=== PATIENT | male | born 1955 | race Caucasian/White ===

== ENCOUNTER 2022-06-20 19:58 | Emergency (ER) | payer MEDICARE, BC, SELFPAY ==
--- NOTE | 2022-06-20 20:13 | CRLHL7_ITS ---
For Patients: As a result of the Century Cures Act, medical imaging exams and procedure reports are released immediately into your electronic medical record. You may view this report before your referring provider. If you have questions, please contact your health care provider. Indication: Elbow pain, no history of trauma Technique: Four views right elbow Comparison: None Findings: Bones: Alignment is normal. No fractures or bone lesions. No bony erosions. Joint spaces: Unremarkable. Soft tissues: Small elbow effusion. Impression: Small elbow effusion. No acute bony abnormality. Dictated by Jessica Olmedo MD @ 06/20/2022 9:39:25 PM (Electronically Signed)
--- NOTE | 2022-06-20 20:16 | ED.GENADULT ---
HPI - General Adult General Date Seen: 06/20/22 Chief complaint: Extremity Pain/Injury, Upper Stated complaint: Right elbow and wrist pain Time Seen by Provider: 06/20/22 20:13 Source: patient History of Present Illness HPI narrative: 67-year-old male presents with 1 day history of right elbow pain. He denies any injury or trauma to his elbow. He has been working in the garden doing a lot of shoveling in [place]. He is right-handed and is using his right arm a lot. Today is been quite painful and has had difficulty using his right arm. He has not had a fever. No previous history of arthritis or other elbow injury. He has had some previous shoulder problems on that side but they are not bothering him today. He has taken Tylenol for pain without much relief. Related Data Home Medications Medication Instructions Recorded Confirmed No Known Home Medications 06/20/22 06/20/22 Allergies Allergy/AdvReac Type Severity Reaction Status Date / Time No Known Drug Allergies Allergy Verified 06/20/22 21:07 Review of Systems Narrative: He has not recently been ill. No fever. No shoulder or neck pain. [facility] Medical History (Updated 06/21/22 @ 00:23 by Hugo Varela MD) No significant past medical history Surgical History (Updated 06/20/22 @ 23:47 by Rome Can RN) No significant past surgical history Social History Smoking Status: Never smoker Do you use any of these nicotine containing products: None How often do you have a drink containing alcohol: never How often do you have six or more drinks on one occasion: Never AUDIT-C Alcohol total score: 0 Non-prescribed substance use: denies use Exam Narrative: Exam Narrative: He is alert and appears in no distress until he attempts to move his right arm. Palpation shows tenderness over the posterior medial elbow in the area of the cubital tunnel. he has some swelling. No warmth or redness. No break in the skin. Passive and active Range of motion is from about 105? to 135? limited by pain. he has minimal supination and pronation also due to pain. Palpation over the forearm without significant tenderness palpation over the antecubital fossa and lateral elbow is without tenderness. Palpation over the right shoulder and upper arm is without tenderness. Palpation over the wrist and hand on the right hand is normal. He has intact sensation though he describes some subjective paresthesias. Intact pulses distally as well. Motor function in the hand is normal. Const: Vital Signs, click to edit/add: Vital Signs - 24 hr 06/20/22 20:58 06/20/22 21:15 06/20/22 22:59 Temperature 98.4 F 98.4 F 98.4 F Pulse Rate [Left P ulse Oximeter] 83 Respiratory Rate 16 Blood Pressure [Ri ght Upper Arm] 144/87 H Pulse Oximetry 96 O2 sat is 98%, blood pressure 132/74 in the left arm, pulse 87. Course Vital Signs Vital signs: Initial Vital Signs Temperature 98.4 F 06/20/22 20:58 Temperature Source Temporal Artery Scan 06/20/22 20:58 Pulse Rate 83 06/20/22 20:58 Pulse Rhythm 06/20/22 20:58 Respiratory Rate 16 06/20/22 20:58 Blood Pressure 144/87 H 06/20/22 20:58 Blood Pressure Mean 106 06/20/22 20:58 Blood Pressure Position Sitting 06/20/22 20:58 Pulse Oximetry 96 06/20/22 20:58 Oxygen Delivery Method 06/20/22 20:58 Vital Signs Temperature 98.4 F 06/20/22 20:58 Pulse Rate 83 06/20/22 20:58 Respiratory Rate 16 06/20/22 20:58 Blood Pressure 144/87 H 06/20/22 20:58 Pulse Oximetry 96 06/20/22 20:58 Temperature 98.4 F 06/20/22 22:59 Pulse Rate 83 06/20/22 20:58 Respiratory Rate 16 06/20/22 20:58 Blood Pressure 144/87 H 06/20/22 20:58 Pulse Oximetry 96 06/20/22 20:58 Medical Decision Making Lab Data Labs: Lab Results 06/20/22 06/20/22 Range/Units 21:48 21:48 WBC 11.24 H (4.50-11.00) K/uL RBC 4.71 (4.30-5.90) m/uL Hgb 14.8 (13.5-17.5) gm/dL Hct 43.7 (37.0-53.0) % MCV 93 (80-100) fL MCH 31 (26-34) pg MCHC 34 (32-36) gm/dL RDW Coeff of Martín 12.0 (11.5-15.5) % Plt Count 231 (140-440) K/uL Neut % (Auto) 79.2 H (42.0-72.0) % Lymph % (Auto) 12.2 L (20-44) % Mason % (Auto) 7.6 (0.0-11.0) % Eos % (Auto) 0.4 (0.0-7.0) % Baso % (Auto) 0.4 (0.0-3.0) % Neut # (Auto) 8.90 H (1.7-7.0) K/uL Lymph # (Auto) 1.40 (0.90-2.90) K/uL Mason # (Auto) 0.90 (0.00-0.90) K/UL Eos # (Auto) 0.00 (0.00-0.50) K/uL Baso # (Auto) 0.00 (0.00-0.30) K/uL Abs Immat Gran (auto) 0.02 (0.00-0.30) K/uL Sodium 137 (135-149) mmol/L Potassium 3.9 (3.6-5.1) mmol/L Chloride 103 (96-114) mmol/L Carbon Dioxide 28 (20-32) mmol/L BUN 19 (7-30) mg/dL Creatinine 0.9 (0.5-1.5) mg/dL Estimated Creat Clear 62.91 Estimated GFR 92 ml/min Glucose 112 (60-115) mg/dL Calcium 8.9 (8.4-10.6) mg/dL C-Reactive Protein 2.9 H (0.5-1.0) mg/dL Discharge Plan Discharge Clinical Impression: Arthralgia of right wrist, Arthritis of right elbow Patient Disposition: Home, Self-Care Condition: Improved Additional Instructions: For the next few days keep your right arm in a sling except for hygiene and occasional stretching of your arm. Use ibuprofen 400 mg every 6 hours or oxycodone 5 mg every 6 hours as needed for pain. Apply ice as needed for pain as well. If you develop a fever or if pain swelling and redness in your all below are increasing return to the emergency department. Prescriptions: No Action No Known Home Medications 0RF Follow Up/Referrals: Luis Carlos Mcqueen MD [Primary Care Provider] - Magno Henderson MD [Staff Physician] - (Go to the orthopedic clinic in the next week for recheck of your elbow) Stand Alone Forms: [employer] Info Instructions
[2022-06-20 20:58] VITALS: BP 144/87; PULSE 83; RESP 16; TEMP 36.9; O2SAT 96; BMI 30.7
[2022-06-20 21:15] VITALS: TEMP 36.9
[2022-06-20] MEDS: IBUPROFEN 600 MG TABLET PO (21:15)
[2022-06-20 21:57] LABS: Basophils Percent Auto 0.4 % (0.0-3.0); Eosinophils Percent Auto 0.4 % (0.0-7.0); Hematocrit 43.7 % (37.0-53.0); Hemoglobin* 14.8 gm/dL (13.5-17.5); Immature Granulocytes Abs Auto 0.02 K/uL (0.00-0.30); Lymphocytes Percent Auto 12.2 % (20-44); Mean Corpuscular HGB Conc 34 gm/dL (32-36); Mean Corpuscular Hemoglobin 31 pg (26-34); Mean Corpuscular Volume 93 fL (80-100); Monocytes Percent Auto 7.6 % (0.0-11.0); Neutrophils Percent Auto 79.2 % (42.0-72.0); Platelet Count* 231 K/uL (140-440); Red Blood Count 4.71 m/uL (4.30-5.90); White Blood Count* 11.24 K/uL (4.50-11.00)
[2022-06-20 22:07] LABS: Slide Review Reflex No
[2022-06-20 22:09] LABS: Chloride* 103 mmol/L (96-114); Potassium* 3.9 mmol/L (3.6-5.1); Sodium* 137 mmol/L (135-149)
[2022-06-20 22:12] LABS: Creatinine* 0.9 mg/dL (0.5-1.5); Est. Creatinine Clearance* 62.91; Estimated Glomerular Filt Rate 92 ml/min
[2022-06-20 22:13] LABS: Blood Urea Nitrogen* 19 mg/dL (7-30); Calcium* 8.9 mg/dL (8.4-10.6); Carbon Dioxide* 28 mmol/L (20-32); Glucose* 112 mg/dL (60-115)
[2022-06-20 22:16] LABS: C Reactive Protein* 2.9 mg/dL (0.5-1.0)
--- NOTE | 2022-06-20 22:44 | CRLHL7_ITS ---
For Patients: As a result of the Cures Act, medical imaging exams and procedure reports are released immediately into your electronic medical record. You may view this report before your referring provider. If you have questions, please contact your health care provider. INDICATION: Wrist injury, Pain TECHNIQUE: Wrist radiograph 3 views right COMPARISON: None FINDINGS: Bone: No acute fractures or aggressive bone lesions are identified. 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 Mild chondrocalcinosis of the TFCC is seen. Soft tissue: Unremarkable. No radiopaque foreign bodies are seen. IMPRESSION: 1. No acute osseous injuries or abnormalities are noted. Dictated by Sherman Mckenzie MD @ 06/20/2022 11:28:13 PM Dictated by: Sherman Mckenzie MD @ 06/20/2022 23:28:15 (Electronically Signed)
[2022-06-20] MEDS: OXYCODONE 5 MG TABLET PO (22:57)
[2022-06-20 22:59] VITALS: TEMP 36.9
--- NOTE | 2022-06-20 23:02 | PC.NURSE ---
pt was moved to room 3 for continuity of care, pt and daughter upset about the wait and feel they were not well informed about tests and why they were being done, pt reassured that we were communicating with the physician and that imaging will be in for another image of wrist, pt given oxycodone as he wanted something additional to ibuprofen
[2022-06-21 00:20] VITALS: BP 135/78; PULSE 83; RESP 16; TEMP 36.9; O2SAT 96
[2022-06-21 00:24] VITALS: BP 135/78; PULSE 78; RESP 16; TEMP 36.9
== END 2022-06-21 00:32 | disposition home or self-care (01) ==
PROVIDERS: Emergency Provider Family Medicine; PCP Family Medicine
DX: M25.531 Pain in right wrist (principal); M25.521 Pain in right elbow
CPT/HCPCS: 36415; 73080; 73110; 80048; 84484; 85025; 85379; 86140; 87040; 87635; 99283; 99284; A9270

== ENCOUNTER 2023-07-28 14:52 | Outpatient (CLI) | payer MEDICARE, BC, SELFPAY | END 2023-07-28 14:53 | disposition home or self-care (01) | LOC: LONREF 14:53 | PROVIDERS: PCP Family Medicine; Visit Provider Family Medicine | DX: R51.9 Headache, unspecified (principal); R11.0 Nausea | CPT/HCPCS: 80053 ==

== ENCOUNTER 2024-05-15 11:52 | Outpatient (CLI) | payer MEDICARE, BC, SELFPAY ==
--- OUTSIDE RECORDS SUMMARY | 2024-05-15 12:00 | XMS_ITS | Clinical Summary ---
Author Organization [facility] Address [place], [place] [address] Care Team Providers Care Sole Splitter Name Role Phone Luis Carlos Mcqueen MD Primary Care Provider [phone] Allergies No known active allergies Medications Medication Sig Dispensed Refills Start Date End Date Status celecoxib (CELEBREX) 200 mg capsuleIndications:P rimary osteoarthritis of left knee,Primary osteoarthritis of right knee Take 1 Capsule (200 mg) by mouth two times daily with meals. 60 Capsule 2 05/08/2024 Active celecoxib (CELEBREX) 200 mg capsuleIndications:P rimary osteoarthritis of both knees Take 1 Capsule (200 mg) by mouth two times daily with meals. 60 Capsule 2 01/11/2023 Discontinue d(Reorder (E-cancel not sent)) Hospital, Clinic, or Other Facility Administered Medication Ordered Dose Route Frequency Start Date End Date Status hylan G-F 20 48 mg injection (SYNVISC ONE)Indications:Primary osteoarthritis of left knee,Primary osteoarthritis of right knee 48 mg IArtic ONE TIME 05/08/2024 05/08/2024 Ended hylan G-F 20 48 mg injection (SYNVISC ONE)Indications:Primary osteoarthritis of left knee,Primary osteoarthritis of right knee 48 mg IArtic ONE TIME 05/08/2024 05/08/2024 Ended Active Problems No known active problems Encounters Date Type Department Care Team Description 05/13/2024 Telephone [facility] [address] [place] [address] Juice Boston MD Referral 05/08/2024 3:00 PM CDT Office Visit [facility] [address] [place] [address] Juice Boston MD Musculoskeletal Problem (Follow up Bilateral knee pain) 05/08/2024 Travel 04/24/2024 1:45 PM CDT Office Visit [facility] [address] [place] [address] Nelson Mullen DPM Follow Up (Bilateral great toenails-PNA check) 04/24/2024 Travel 04/23/2024 Telephone [facility] [address] [place] [address] Nelson Mullen DPM Questions (ingrown toenail procedure location) 04/23/2024 Telephone [facility] [address] [place] [address] Juice Boston MD Questions (REQUESTING A CALL BACK// BEFORE TOMORROW 04/23/24 ) 03/18/2024 9:20 AM CDT Office Visit [facility] [address] [place] [address] Juice Boston MD Musculoskeletal Problem (f/u bilateral knee pain- injections last visit) 03/18/2024 Travel from Last 3 Months Social History Tobacco Use Types Packs/Day Years Used Date Smoking Tobacco: Former Cigarettes Smokeless Tobacco: Never Tobacco Cessation:Counseling Given: No Alcohol Use Standard Drinks/Week Comments Not Currently 0 (1 standard drink = 0.6 oz pur e alcohol) Social Connections Answer Date Recorded Frequency of Communication with Friends and Fami ly Not on file 11/27/2021 Financial Resource Strain Answer Date R ecorded Difficulty of Paying Living Expenses Not on file 11/27/2021 Difficulty of Paying Living Expenses Not on file 11/27/2021 Sex and Gender Information Value Date Recorded Sex Assigned at Not on file Gender Identity Not on file Sexual Orientation Not on file Obstetrics History Last Filed Vital Signs Vital Sign Reading Time Taken Comments Blood Pressure 116/73 05/08/2024 3:03 PM CDT Pulse 72 05/08/2024 3:03 PM CDT Temperature 36.9 ??C (98.4 ??F) 05/08/2024 3:03 PM CD T Respiratory Rate - - Oxygen Saturation 97% 05/08/2024 3:03 PM CDT Inhaled Oxygen Concentration - - Weight 90.1 kg (198 lb 9.6 oz) 05/08/2024 3:03 P M CDT Height 166 cm (5' 5.35) 05/31/2021 1:41 PM CDT Body Mass Index 32.69 05/31/2021 1:41 PM CDT Plan of Treatment Health Maintenance Due Date Last Done Comments Tdap 01/29/1964 Depression screening for age 12+ 1965 Hepatitis C screening for ag e 18-79 1971 Tetanus booster 1973 Colonoscopy through age 75 1998 Lipids for age 45-75 1998 Zoster (shingles) series for age 50+ (1 of 2) 2003 AAA screening age 65-74 2018 Medicare Wellness for age 65+ 2018 Pneumococcal series for age 65+ (1 of 1 - PCV) 2018 BMI (ht and wt on same day) for age 18+ 05/31/2022 05/31/2021 COVID-19 vaccine series (2022- season) 2023 04/07/2022, 11/22/2021, 03/04/2021, Additional history exists Influenza for age 65+ 07/28/2024 Care Teams Sole Splitter Relationship Specialty Start Date End Date Luis Carlos Mcqueen MD [address] [place] [address] PCP - General Family Practice 03/18/24
== END 2024-05-15 11:53 | disposition home or self-care (01) ==
PROVIDERS: PCP Family Medicine; Visit Provider Family Medicine
DX: Z12.5 Encounter for screening for malignant neoplasm of prostate (principal); E78.2 Mixed hyperlipidemia; Z13.1 Encounter for screening for diabetes mellitus
CPT/HCPCS: 80048; 80061; G0103

== ENCOUNTER 2024-05-28 10:33 | Outpatient (CLI) | payer MEDICARE, BC, SELFPAY ==
--- OUTSIDE RECORDS SUMMARY | 2024-05-28 10:37 | XMS_ITS | Clinical Summary ---
Author Organization [facility] Address [place], [place] [address] Care Team Providers Care Editor Magazine Name Role Phone Luis Carlos Mcqueen MD Primary Care Provider [phone] Allergies No known active allergies Medications Medication [...] Type Department Care Team Description 05/13/2024 Telephone [facility] [address] [place] [address] Juice Boston MD Referral 05/08/2024 3:00 PM CDT Office Visit [facility] [address] [place] [address] Juice Boston MD Musculoskeletal Problem (Follow up Bilateral knee pain) 05/08/2024 Travel 04/24/2024 1:45 PM CDT Office Visit [facility] [address] [place] [address] Nelson Mullen DPM Follow Up (Bilateral great toenails-PNA check) 04/24/2024 Travel 04/23/2024 Telephone [facility] [address] [place] [address] Nelson Mullen DPM Questions (ingrown toenail procedure location) 04/23/2024 Telephone [facility] [address] [place] [address] Juice Boston MD Questions (REQUESTING A CALL BACK// BEFORE TOMORROW 04/23/24 ) 03/18/2024 9:20 AM CDT Office Visit [facility] [address] [place] [address] Juice Boston MD Musculoskeletal Problem (f/u bilateral [...] Influenza for age 65+ 07/28/2024 Care Teams Editor Magazine Relationship Specialty Start Date End Date Luis Carlos Mcqueen MD [address] [place] [address] PCP - General Family Practice 03/18/24
[2024-05-28 11:40] VITALS: BP 122/78; PULSE 86; RESP 16
--- NOTE | 2024-05-28 12:02 | W.PM.STED ---
Stress Test Note Date Date of test: 05/28/24 Providers Primary care provider: Luis Carlos Mcqueen Stress test physician: Wesley Castellanos Stress Test Note Stress test ordered: Exercise Stress Test Indication for test: Chest pain Results discussion: Patient is a very nice 69-year-old gentleman who presents for the above test after discussion the risks benefits side effects and limitations of the test he would like to proceed. Indication for the test is chest pain, his cardiac stress test medical history form is reviewed. Pretest EKG shows normal sinus rhythm with a ventricular rate of 66. Blood pressure is 117/72. No acute ST wave changes are noted. Standard Drake protocol is used for a duration of 9 minutes 2nd, he achieved a metabolic equivalent of 10.5 Mets, with a maximum heart rate of 140. This is 110% of the predicted max. Test is terminated because of fulfillment of protocol, during this test there is no subjective symptoms suggestive of ischemia such as chest pain shortness of breath or any other anginal equivalent. Very mild changes are noted on the EKG, there is slight depression noted inferiorly. Of 1 mm no reciprocal changes are noted Impression: This is a negative exercise stress test, with no subjective or objective evidence of ischemia. Patient exercised to a very high rate, with no complaints. Chief clinical suspicion is high I would suggest a stress echo, Follow up suggested: Follow-up with primary care physician of ongoing concerns. Report will be sent to primary care physician, ongoing concerns stress echo suggested
== END 2024-05-28 10:34 | disposition home or self-care (01) ==
LOC: STRESS 10:34
PROVIDERS: PCP Family Medicine; Visit Provider Family Medicine
DX: R07.9 Chest pain, unspecified (principal)
CPT/HCPCS: 93016; 93017

== ENCOUNTER 2024-06-13 14:36 | Outpatient (CLI) | payer MEDICARE, BC, SELFPAY ==
--- OUTSIDE RECORDS SUMMARY | 2024-06-13 14:40 | XMS_ITS | Clinical Summary ---
Author Organization [facility] Address [place], [place] [address] Care Team Providers Care Sewing Machines Salesperson Name Role Phone Luis Carlos Mcqueen MD Primary Care Provider [phone] Allergies No known active allergies Medications Medication Sig Dispensed Refills Start Date End Date Status celecoxib (CELEBREX) 200 mg capsuleIndications:Lucia gavin osteoarthritis of left knee,Primary osteoarthritis of right knee Take 1 Capsule (200 mg) by mouth two times daily with meals. 60 Capsule 2 05/08/2024 Active Active Problems No known active problems Encounters Date Type Department Care Team Description 05/13/2024 Telephone [facility] [address] [place] [address] Juice Boston MD Referral 05/08/2024 3:00 PM CDT Office Visit [facility] [address] [place] [address] Juice Boston MD Musculoskeletal Problem (Follow up Bilateral knee pain) 05/08/2024 Travel 04/24/2024 1:45 PM CDT Office Visit [facility] [address] [place] [address] Nelson Mullen DPM Follow Up (Bilateral great toenails-PNA check) 04/24/2024 Travel 04/23/2024 Telephone [facility] [address] [place] [address] Nelson Mullen DPM Questions (ingrown toenail procedure location) 04/23/2024 Telephone [facility] [address] [place] [address] Juice Boston MD Questions (REQUESTING A CALL BACK// BEFORE TOMORROW 04/23/24 ) 03/18/2024 9:20 AM CDT Office Visit [facility] [address] [place] [address] Juice Boston MD Musculoskeletal Problem (f/u bilateral [...] 05/31/2021 1:41 PM CDT Plan of Treatment Upcoming Encounters Date Type Department Care Team (Late st Contact Info) Description 06/13/2024 3:00 PM CDT Ancillary Procedure [facility] [address] [place] [address] Health Maintenance Due Date Last Done Comments [...] Influenza for age 65+ 07/28/2024 Care Teams Sewing Machines Salesperson Relationship Specialty Start Date End Date Luis Carlos Mcqueen MD [address] [place] [address] PCP - General Family Practice 03/18/24
[2024-06-13 15:27] VITALS: BP 148/90
[2024-06-13] MEDS: PERFLUTREN LIPID MICROSPHERES 2 ML VIAL IV (15:35)
--- NOTE | 2024-06-13 15:46 | P.STN_ITS ---
Stress Test Note Date Date Seen: 06/13/24 Date of test: 06/13/24 Providers Primary care provider: Luis Carlos Mcqueen Stress test physician: Irene Vincent Stress Test Note Stress test ordered: Stress Echo Indication for test: Chest pain, EKG with mild changes on treadmill stress test Stress test medicine: Definity Results discussion: Resting EKG: Sinus rhythm, 71 beats per minute. Flipped T-wave in V1 without any ST segment change. Resting blood pressure: 138/76 Stress test: Patient consent was obtained for stress test ordered. Patient exercised on the treadmill following standard Drake protocol, completed 9 minutes 2nd. Definity was used. He exercised to an equivalent of 10.5 Mets. He had a maximum heart rate of 134 beats per minute which was 105% of a calculated target of 127. He had a rate pressure product of 22,078. He had no symptoms, no arrhythmia. There were no definitive EKG changes diagnostic of ischemia but do note computer generated data show about [address] depression in inferior leads. He did have occasional premature atrial contraction in recovery . Exercise was stopped as patient reached heart rate, required definity. Preliminary echo report is negative for ischemia. Impression: Subjectively negative, objectively nondiagnostic changes inferiorly on EKG. Follow up suggested: Patient will await the echo report to couple this for a full formal diagnostic. The inferior EKG changes are certainly not meeting diagnostic criteria for ischemia and patient had no symptoms. He is leaving the stress test in stable condition.
== END 2024-06-13 14:37 | disposition home or self-care (01) ==
LOC: STRESS 14:37
PROVIDERS: PCP Family Medicine; Visit Provider Family Medicine
DX: R07.9 Chest pain, unspecified (principal)
CPT/HCPCS: 93016; 93325; 93351; Q9957

== ENCOUNTER 2024-12-23 09:04 | Outpatient (CLI) | payer MEDICARE, BC, SELFPAY | END 2024-12-23 09:05 | disposition home or self-care (01) | PROVIDERS: PCP Family Medicine; Visit Provider Family Medicine | DX: R10.9 Unspecified abdominal pain (principal); E78.5 Hyperlipidemia, unspecified; R53.83 Other fatigue | CPT/HCPCS: 80061; 80076; 83690; 84443 ==

== ENCOUNTER 2024-12-24 06:59 | Outpatient (CLI) | payer MEDICARE, BC, SELFPAY ==
--- NOTE | 2024-12-24 08:05 | W.ANESCHARGE ---
Anesthesia Charges Start Date/Time Anesthesia Start Date: 12/24/24 Anesthesia Start Time: 07:43 Stop Date/Time Anesthesia Stop Date: 12/24/24 Anesthesia Stop Time: 08:05 Coding CPT Codes CPT Codes: DAVID LWR INTST NDSC NOS - 79308 ([id number]) P2 - PATIENT W/MILD SYST DISEASE, QK - SECOND VP HR ASSESSMENT 2-4 CNCRNT ANES PROC, QX - KIESELGUHR REGENERATOR OPERATOR SVC W/ MD MED DIRECTION
--- NOTE | 2024-12-24 09:44 | W.ANESCHARGE ---
Anesthesia Charges Start Date/Time Anesthesia Start Date: 12/24/24 Anesthesia Start Time: 07:43 Stop Date/Time Anesthesia Stop Date: 12/24/24 Anesthesia Stop Time: 08:05 Summary Extremes of Age - Over 70 or under 1: MDA Coding CPT Codes CPT Codes: ANES LWR INTST NDSC NOS - 61692 ([id number]) P2 - PATIENT W/MILD SYST DISEASE, QK - RAIL CAR WELDER 2-4 CNCRNT ANES PROC, QX - FRENCH FOLDING MACHINE OPERATOR SVC W/ MD MED DIRECTION Additional Codes: Summary - Extremes of Age - Over 70 or under 1: MDA ([id number])
== END 2024-12-24 07:00 | disposition home or self-care (01) ==
LOC: OP CLINIC 07:01
PROVIDERS: PCP Family Medicine; Visit Provider Internal Medicine
DX: Z12.11 Encounter for screening for malignant neoplasm of colon (principal); D12.4 Benign neoplasm of descending colon
CPT/HCPCS: 00811; 45380; 88305; 99100; J2704

== ENCOUNTER 2025-03-03 07:27 | Day surgery (SDC) | payer MEDICARE, BC, SELFPAY ==
[2025-03-03] VITALS (23 sets, daily range): BP systolic 92–148; BP diastolic 50–77; PULSE 57–73; RESP 12–18; TEMP 35.6–36.9; O2SAT 90–99; BMI 31.6
--- NOTE | 2025-03-03 08:15 | W.PM.H&PU ---
History & Physical Update History & Physical Update H&P Reviewed and patient assessed: No changes noted
[2025-03-03] MEDS: ACETAMINOPHEN 500 MG TABLET 1000 MG PO ×3 (08:22→20:33)
[2025-03-03] MEDS: OXYCODONE (CR) 10 MG TAB.ER.12H PO (08:22)
[2025-03-03] MEDS: SODIUM CHLORIDE 0.9 % (FLUSH) 10 ML SYRINGE IVF (08:25)
[2025-03-03] MEDS: LACTATED RINGERS 1000 ML 1,000 ML 100 ML IV ×2 (08:25→11:11)
[2025-03-03] MEDS: MIDAZOLAM HCL 1 MG/ML inj IVP (09:15)
[2025-03-03] MEDS: fentaNYL 100 MCG/2 ML inj IVP (09:15)
--- NOTE | 2025-03-03 09:21 | SUR.PREOP ---
TIME?OUT:?912 PT/RN/MDA?VERIFICATION?OF?SURGICAL?SITE,?PROCEDURE,?AND?CONSENT OBTAINED?PRIOR?TO?INVASIVE?PROCEDURE.
[2025-03-03] MEDS: CEFAZOLIN 2 GM in 0.9 % SODIUM CHLORIDE Mini-bag 100 ML IVPB ×3 (09:40→23:15)
--- NOTE | 2025-03-03 09:44 | CRLHL7_ITS ---
For Patients: As a result of the Cures Act, medical imaging exams and procedure reports are released immediately into your electronic medical record. You may view this report before your referring provider. If you have questions, please contact your health care provider. Indication: post op Technique: Two views right knee Findings/Impression: Hardware from a right total knee arthroplasty is in satisfactory position. Bone alignment is normal. No sign of acute fracture. Postop changes are within normal limits. Dictated by Solomon Nova MD @ 03/03/2025 11:44:48 AM (Electronically Signed)
[2025-03-03] MEDS: TRANEXAMIC ACID 100 MG/ML INJ 1000 MG IV (09:45)
--- NOTE | 2025-03-03 11:05 | PM.ORPRC ---
Procedure Note Date of procedure: 03/03/25 Procedure: PREOPERATIVE DIAGNOSIS: 1. Right knee osteoarthritis, primary, severe POSTOPERATIVE DIAGNOSIS: 1. Right knee osteoarthritis, primary, severe PROCEDURE: 1. Right total knee arthroplasty - subvastus SURGEON: Magno Henderson MD. CUPOLA MELTER HELPER: MAGALY Walter - Of note, a skilled floor covering printer assistant was critical for this case to aid in patient positioning, tissue retraction, limb manipulation/positioning, and closure. ANESTHESIA: Spinal anesthetic IMPLANTS: DePuy J&J all cemented TKA - Attune PS femur size 7 Size 6 tibia 5 poly spacer 38 mm patella TOURNIQUET: 90 min at 300 torr EBL: 50 ml COMPLICATIONS: None evident INDICATIONS: The patient is a pleasant 70-year-old male who has experienced severe right knee pain and difficulty bearing weight. Workup included x-rays which revealed severe osteoarthrosis in the knee. Given the deformity, the dysfunction, and the pain, as well as the failure of nonoperative management, recommendation was made for surgery. FINDINGS: Full-thickness chondral loss lateral compartment. To lesser degree patellofemoral and medial compartment. Degenerative meniscus pathology lateral greater than medial. Large effusion upon entering the joint. DESCRIPTION OF PROCEDURE: Following a thorough discussion of risks, benefits, and alternatives consent was obtained and the right knee was marked. The patient was brought to the operating room and placed supine on the operating table. Induction of anesthesia was undertaken. 2 g IV Ancef and 1 g tranexamic acid was administered within 1 hr of incision preoperatively. Proper time-out was performed identifying proper patient, site, procedure. The operative extremity was prepped and draped in the appropriate sterile fashion using ChloraPrep after the patient was positioned supine with all bony prominences well padded. A longitudinal, anterior, midline skin incision was made starting approximately 3cm proximal to the superior pole of the patella and advanced distal to the tibial tubercle. A subvastus approach was utilized. A medial subperiosteal sleeve was created with knife, farley elevator and curved osteotome. The retropatellar fatpad was resected and the synovium in the suprapatellar pouch excised to visualize the anterior femoral cortex. Femoral preparation was performed via an intramedullary guide. Step drill allowed access into the femoral canal. The distal cutting guide was placed with 5? of valgus and 12 mm cut on the distal femur due to a 10?+ flexion contracture. Femur was sized using a posterior referencing guide in 3? of external rotation. This found have a best fit with the sizing noted above. The 4 in 1 cutting block was then placed, and the distal femur shaped accordingly. The box cut was then created and the trial implant inserted to confirm appropriate fit. We turned our attention to the proximal tibia. Extramedullary guide was utilized for cutting with the goal of being 90 degree cut from the mechanical axis of the tibia in the varus/valgus plane utilizing tibial crest as the primary alignment. Initially a 2 mm resection was performed from the medial tibial plateau. An additional 2mm did require resection to achieve appropriate balance. Ultimately, balancing was achieved in both flexion and extension in both varus and valgus. The knee was able to achieve full extension as well comfortably. The patella was initially measured and found have a thickness of 22 mm. It was resected back to approximately 14 mm. It was sized to be a best fit with as noted above. This was drilled, trial placed. All trials were placed and found to have an excellent stability and balance. At this stage, trial implants were removed, the knee was thoroughly irrigated with normal saline, and the cement was mixed. After irrigation, the knee was thoroughly dried, and cement placed, with the real tibial and femoral implants placed along with the patella. Trial poly spacer was placed and confirmed to have excellent range of motion and full extension, and the real poly spacer opened and inserted. All extra cement was removed, and a 3 min Betadine soak performed. Finally, a final irrigation round with normal saline was performed. Closure performed with 0 Vicryl and #0 Stratafix for the quad tendon/retinaculum. 2-0 Vicryl for the subcutaneous and 4-0 Stratafix for subcuticular closure. Dressings were applied and the patient was awoken from anesthesia after the tourniquet deflated and transferred the PACU in stable condition. A skilled floor covering printer assistant was critical for this case to aid in patient positioning, tissue retraction, bone exposure, limb manipulation/positioning, patient safety, and closure. PLAN: 1. Weight bear as tolerated operative extremity. 2. 23 hr perioperative antibiotics. 3. Ice. 4. PT/OT consults for ambulation assistance/mobility education. 5. Social work consult for discharge planning. 6. DVT prophylaxis with at SCDs and aspirin twice daily.
--- NOTE | 2025-03-03 11:12 | P.ANES_ITS ---
Anesthesia Charges Start Date/Time Anesthesia Start Date: 03/03/25 Anesthesia Start Time: 09:27 Stop Date/Time Anesthesia Stop Date: 03/03/25 Anesthesia Stop Time: 11:25 Summary Extremes of Age - Over 70 or under 1: BOILER BLOWER Coding CPT Codes CPT Codes: ANESTH KNEE ARTHROPLASTY - 50478 ([id number]) P2 - PATIENT W/MILD SYST DISEASE, QK - EMPLOYMENT LAW SPECIALIST 2-4 CNCRNT ANES PROC, QX - BOILER BLOWER SVC W/ MD MED DIRECTION Additional Codes: Summary - Extremes of Age - Over 70 or under 1: BOILER BLOWER ([id number])
--- NOTE | 2025-03-03 11:12 | W.ANESCHARGE ---
Anesthesia Charges Start Date/Time Anesthesia Start Date: 03/03/25 Anesthesia Start Time: 09:27 Stop Date/Time Anesthesia Stop Date: 03/03/25 Anesthesia Stop Time: 11:25 Summary Extremes of Age - Over 70 or under 1: MACHINING SUPERVISOR Coding CPT Codes CPT Codes: ANESTH KNEE ARTHROPLASTY - 15680 ([id number]) P2 - PATIENT W/MILD SYST DISEASE, QK - COOK SPECIALTY 2-4 CNCRNT ANES PROC, QX - MACHINING SUPERVISOR SVC W/ MD MED DIRECTION Additional Codes: Summary - Extremes of Age - Over 70 or under 1: MACHINING SUPERVISOR ([id number])
--- NOTE | 2025-03-03 11:34 | P.ANES_ITS ---
Anesthesia Charges Start Date/Time Anesthesia Start Date: 03/03/25 Anesthesia Start Time: 09:27 Stop Date/Time Anesthesia Stop Date: 03/03/25 Anesthesia Stop Time: 11:25 Summary Extremes of Age - Over 70 or under 1: MDA Coding CPT Codes CPT Codes: ANESTH KNEE ARTHROPLASTY - 32877 ([id number]) QK - GENERAL ROAD SUPERVISOR 2-4 CNCRNT ANES PROC, QX - SERVICING MANAGER SVC W/ MD MED DIRECTION, P2 - PATIENT W/MILD SYST DISEASE Additional Codes: Summary - Extremes of Age - Over 70 or under 1: MDA ([id number])
--- NOTE | 2025-03-03 11:34 | W.ANESCHARGE ---
Anesthesia Charges Start Date/Time Anesthesia Start Date: 03/03/25 Anesthesia Start Time: 09:27 Stop Date/Time Anesthesia Stop Date: 03/03/25 Anesthesia Stop Time: 11:25 Summary Extremes of Age - Over 70 or under 1: MDA Coding CPT Codes CPT Codes: ANESTH KNEE ARTHROPLASTY - 55743 ([id number]) QK - REFLECTOR DRILLER AND DEBURRER 2-4 CNCRNT ANES PROC, QX - DIRECTOR OF ENVIRONMENTAL SERVICES SVC W/ MD MED DIRECTION, P2 - PATIENT W/MILD SYST DISEASE Additional Codes: Summary - Extremes of Age - Over 70 or under 1: MDA ([id number])
--- NOTE | 2025-03-03 11:34 | W.PM.NB ---
Nerve Block Nerve Block Time Seen by Provider: 09:15 Date Seen: 03/03/25 Type of block requested by surgeon for post-operative analgesia: adductor canal Side: right Time out performed: Yes Verification of patient name: Yes Verification of date of : Yes Site marking: site marked Name of person performing procedure: Ildefonso Continuous monitoring Was continuous monitoring of O2 sat, B/P, hall monitor, recorded every 15 minutes?: Yes Procedure Checklist: sterile prep, needles and gloves Ultrasound guided. Images saved: Yes Medications given in 5ml increments after negative aspiration: Marcaine %: 0.25 mL: 15 Needle gauge: 20 Precedex (mcg): 25 Patient tolerated procedure well: Yes Block Charges Block Charge (with Pro Fee): Femoral Nerve Use of Ultrasound Machine for Block: Yes- US Guidance/pain block
--- NOTE | 2025-03-03 11:35 | W.PM.NB ---
Nerve Block Nerve Block Time Seen by Provider: 09:15 Date Seen: 03/03/25 Type of block requested by surgeon for post-operative analgesia: geniculars Side: right Time out performed: Yes Verification of patient name: Yes Verification of date of : Yes Site marking: site marked Name of person performing procedure: Ildefonso Continuous monitoring Was continuous monitoring of O2 sat, B/P, cosmetic counselor, recorded every 15 minutes?: Yes Procedure Checklist: sterile prep, needles and gloves Ultrasound guided. Images saved: Yes Medications given in 5ml increments after negative aspiration: Marcaine %: 0.25 mL: 9 Needle gauge: 25 Patient tolerated procedure well: Yes Block Charges Block Charge (with Pro Fee): Genicular Nerve Block
[2025-03-03] MEDS: lidocaine HCL 2 % JELLY (TOP) STERILE 6 ML UR (14:39)
[2025-03-03] MEDS: HYDROmorphone 0.5 mg/0.5 ml inj IVP (15:34)
--- NOTE | 2025-03-03 16:05 | P.IMCN_ITS ---
Date of Consult Consult date: 03/03/25 Primary Care Provider: Luis Carlos Mcqueen MD Consult Narrative Narrative: Yvan Blood is a 70 year old male with hyperlipidemia, osteoarthritis of the knees, SINAN admitted to the hospital for right total knee arthroplasty. Procedures performed by Dr. Henderson today. No operative complications. He is requesting consult for medical management perioperatively. Patient reported having significant low abdominal pain after coming out of anesthesia to the [facility] floor. He was unable to void. Bladder scan showed a large amount of retained urine. Straight cath was performed for about a 1000 mL of urine. This relieved his low abdominal pain. Patient is does not have a history of urinary retention, bladder problems, prostate problems, bowel problems. He reports he does void every 2-3 hours at night. Otherwise denies any other urinary symptoms. He reports no other concerns. Knee pain is adequately controlled. He is not having any nausea. Preop evaluation did not identify any significant concerns for the perioperative. He does have sleep apnea but chose not to bring his CPAP to the hospital. [facility] Medical History (Updated 03/03/25 @ 16:39 by Hugo Varela MD) Urinary retention ?R33.9 - Retention of urine, unspecified (ICD-10) Family history of ASCVD ?Z82.49 - Family history of ischemic heart disease and other diseases of the circulatory system (ICD-10) Adenomatous colon polyp ?D12.6 - Benign neoplasm of colon, unspecified (ICD-10) Hyperlipidemia ?E78.5 - Hyperlipidemia, unspecified (ICD-10) Osteoarthritis of left knee ?M17.12 - Unilateral primary osteoarthritis, left knee (ICD-10) Osteoarthritis of right knee ?M17.11 - Unilateral primary osteoarthritis, right knee (ICD-10) Knee injury ?S89.90XA - Unspecified injury of unspecified lower leg, initial encounter (ICD-10) Observed sleep apnea ?G47.30 - Sleep apnea, unspecified (ICD-10) Chest pain ?R07.9 - Chest pain, unspecified (ICD-10) Low back pain (09/14/10) ?M54.50 - Low back pain, unspecified (ICD-10) History of rheumatic fever ?Z86.79 - Personal history of other diseases of the circulatory system (ICD- 10) Surgical History (Updated 03/03/25 @ 16:38 by Hugo Varela MD) History of total right knee replacement (03/03/25) ?Z96.651 - Presence of right artificial knee joint (ICD-10) History of open reduction and internal fixation (ORIF) procedure ?Z98.890 - Other specified postprocedural states (ICD-10) Status post nasal septoplasty (09/14/10) ?Z98.890 - Other specified postprocedural states (ICD-10) Status post carpal tunnel release of both wrists (09/14/10) ?Z98.890 - Other specified postprocedural states (ICD-10) Social History (Updated 03/03/25 @ 16:35 by Hugo Varela MD) Narrative: He lives with his in [place]. Their house has ramps and only 1 step that is about 5-1/2 inches. He has 2 daughters that live nearby and in [place]. He does it dates his 2 daughters is healthcare power of admitted attorneys. Code status is full. He does not smoke. He occasionally drinks alcohol, about once a week. What is your current living situation?: I presently have a place to live Problems where you live: no known problems In the past 12 months, utilities in danger of being shut off: no In past 12 months, lack of transportation kept you from medical appts, meetings, work, or getting things needed for daily living: no In the past 12 mos, have been you worried that your food would run out before you had money to buy more?: never true In the past 12 mos, the food you bought just didn't last and you didn't have money to buy more?: never true Highest level of school completed/degree received: Associate degree: occupational, technical, vocational program Smoking Status: Former smoker Do you use any of these nicotine containing products: None How often do you have a drink containing alcohol: monthly or less How many standard drinks containing alcohol do you have on a typical day: 1 or 2 How often do you have six or more drinks on one occasion: Never AUDIT-C Alcohol total score: 1 Non-prescribed substance use: denies use Caffeine: Yes How often does anyone, including family, friends and others, physically hurt you : never How often does anyone, including family, friends and others, insult or talk down to you: never How often does anyone, including family, friends and others, threaten you with harm: never How often does anyone, including family, friends and others, scream or curse at you: never service: No Meds Home Medications and Allergies Home Medications ?Medication ?Instructions ?Recorded ?Confirmed ?Type rosuvastatin 10 mg tablet 10 mg PO DAILY 03/03/25 03/03/25 History Home Medication Comments: Takes 2 pills daily, atorvastatin 20 mg daily Allergies Allergy/AdvReac Type Severity Reaction Status Date / Time No Known Drug Allergies Allergy Verified 03/03/25 07:36 Exam Narrative: Exam Narrative: Initially seen when he is alert and appears in mild discomfort at that time is abdomen is soft but he has fullness and tenderness in his lower abdomen. Repeat examination after straight cath as follows: He is alert in no distress. Oropharynx is normal except small airway neck is supple without mass or adenopathy. Respirations are clear to auscultation. Cardiovascular: S1, S2, regular rate and rhythm. No murmur gallop or rub. Abdomen: Bowel sounds are active. Abdomen is soft without any tenderness. He moves all 4 extremities well. Right knee is bandaged but otherwise normal in appearance without obvious swelling bruising or redness. Intact pulses and sensation in his feet. No significant edema. Const: Vital Signs, click to edit/add: Vital Signs - 24 hr 03/03/25 07:35 03/03/25 09:15 03/03/25 11:20 Temperature 97.8 F Pulse Rate 73 60 64 Respiratory Rate 18 14 14 Blood Pressure 139/72 122/64 92/50 L Pulse Oximetry 97 99 90 Oxygen Delivery Me thod Room Air Nasal Cannula OxyMask Oxygen Flow Rate 2 6 03/03/25 11:25 03/03/25 11:30 03/03/25 11:35 Temperature 97.8 F Pulse Rate 64 62 60 Respiratory Rate 14 12 12 Blood Pressure 94/57 L 102/63 111/64 Pulse Oximetry 98 98 95 Oxygen Delivery Me thod OxyMask OxyMask Room Air Oxygen Flow Rate 6 4 03/03/25 11:40 03/03/25 11:45 03/03/25 11:47 Temperature 97.0 F L Pulse Rate 62 59 L 64 Respiratory Rate 14 16 14 Blood Pressure 106/59 L 116/69 101/62 Pulse Oximetry 94 95 95 Oxygen Delivery Me thod Room Air Room Air Room Air Oxygen Flow Rate 03/03/25 12:00 03/03/25 12:15 03/03/25 12:30 Temperature 96.0 F L 96.0 F L Pulse Rate 57 L 62 61 Respiratory Rate 14 14 14 Blood Pressure 120/68 118/74 113/67 Pulse Oximetry 95 95 95 Oxygen Delivery Me thod Room Air Room Air Oxygen Flow Rate 03/03/25 12:45 03/03/25 12:45 03/03/25 13:15 Temperature 96.6 F L Pulse Rate 59 L 64 64 Respiratory Rate 16 16 16 Blood Pressure 107/67 107/62 113/69 Pulse Oximetry 96 96 96 Oxygen Delivery Me thod Room Air Room Air Room Air Oxygen Flow Rate Documenting provider has reviewed patient's vital signs: yes Assessment and Plan Assessment and plan (1) Osteoarthritis of right knee: Problem comment: Severe Status: Acute (2) History of total right knee replacement: Problem comment: Right total knee arthroplasty - subvastus. Dr. Henderson, 03/03/25. Anticipate routine postoperative pain management and therapy and discharge to home tomorrow. Status: Acute (3) Urinary retention: Problem comment: Postop right knee arthroplasty on 03/03/2025 he had low abdominal pain with 1000 mL of retained urine. Will straight cath 1 more time if needed after that place [place] if still unable to void. Initiate tamsulosin therapy. Discussed with patient ongoing evaluation management of this problem including possible explanations/diagnosis and potential treatments. Status: Acute (4) Observed sleep apnea: Problem comment: Monitor tonight since patient is here off CPAP Status: Acute Plan Patient is admitted the hospital for management of postoperative care, pain, bowel and bladder function, therapy. Total Time Spent Total Time Spent: Total time spent today is 55 minutes in reviewing outside records, coordination of care, evaluating and re-evaluating urinary retention and discussing with patient and his family postoperative management of the knee arthroplasty as well as urinary retention and catheter care.
--- NOTE | 2025-03-03 16:17 | PC.SOCIAL ---
Discharge planning: bridge ironworker helper attempted to meet with pt today x3 this afternoon. The first time the pt was with PT and the second time the pt was with the doctor and the third time the pt was sleeping. bridge ironworker helper will plan to meet with the pt in the morning. Social work to follow-up as needed.
--- NOTE | 2025-03-03 19:35 | PC.NURSE ---
The patient is recovering well on the M/S unit. Weak movement in RLE, pedal pulse intact and CMS present. Mild pain noted by the patient. Ice pack to R knee, LR@ 75. Tolerating a regular diet with no issues, poor PO fluid intake. The patient had severe bladder distention and Bladder scan was preformed by ANGELINE, Straight cath was inserted per order and 1000cc was emptied, to monitor for reoccurrence. Call light within reach and the family is at the bedside. Sofya CHURCH BSN
[2025-03-03] MEDS: TAMSULOSIN HCL 0.4 MG CAPSULE PO (19:49)
[2025-03-03] MEDS: OXYCODONE 5 MG TABLET PO ×2 (19:51→23:17)
[2025-03-03] MEDS: ASPIRIN 81 MG TABLET EC PO (20:33)
[2025-03-03] MEDS: SENNOSIDES 1 TAB TABLET 2 TAB PO (20:34)
[2025-03-03] MEDS: ROSUVASTATIN CALCIUM 10 MG TABLET 20 MG PO (23:54)
[2025-03-04] MEDS: ACETAMINOPHEN 500 MG TABLET 1000 MG PO ×2 (02:19→09:04)
[2025-03-04] MEDS: OXYCODONE 5 MG TABLET PO ×3 (02:21→09:04)
[2025-03-04 02:55] VITALS: BP 120/62; PULSE 69; RESP 16; TEMP 36.8; O2SAT 95
--- NOTE | 2025-03-04 06:09 | PC.NURSE ---
End of shift note [id number]: Pt A&Ox4 and able to make needs known. He is transferring/ambulating with SBA using FWW and GB. VSS- pt has been afebrile and on RA throughout the shift with O2 sats maintained over 90% throughout the shift, even when sleeping (pt has hx of SINAN though did not bring home CPAP). Dressing to anterior R knee C/D/I and CMS to RLE intact. Pt tolerating regular diet with no N/V. Pain to R knee controlled with rest, ice, repositioning and PRN and scheduled pain medications. Bilateral plexi pulses worn. Pt slept well in between cares. He has been voiding in bathroom with PVRs of 244 mL and 15 mL this shift. Pt's daughter Aicha called at 2245 last evening requesting update whether pt had voided at HS. She was updated that pt had voided and was bladder scanned with PVR of 244 mL at HS. Bed alarm on and call light within reach. ?
[2025-03-04 06:38] LABS: Basophils Percent Auto 0.1 % (0.0-3.0); Eosinophils Percent Auto 0.1 % (0.0-7.0); Hematocrit 36.4 % (37.0-53.0); Hemoglobin* 12.3 gm/dL (13.5-17.5); Immature Granulocytes Pct Auto 0.1 %; Lymphocytes Percent Auto 11.7 % (20-44); Mean Corpuscular HGB Conc 34 gm/dL (32-36); Mean Corpuscular Hemoglobin 31 pg (26-34); Mean Corpuscular Volume 93 fL (80-100); Monocytes Percent Auto 8.9 % (0.0-11.0); Neutrophils Percent Auto 79.1 % (42.0-72.0); Platelet Count* 200 K/uL (140-440); RDW Coefficient of Variation % 12.6 % (11.5-15.5); Red Blood Count 3.92 m/uL (4.30-5.90); White Blood Count* 13.89 K/uL (4.50-11.00)
[2025-03-04 06:45] LABS: Slide Review Reflex No
[2025-03-04 06:52] LABS: Sodium* 134 mmol/L (135-149)
[2025-03-04 06:55] LABS: Blood Urea Nitrogen* 14 mg/dL (7-30); Creatinine* 0.6 mg/dL (0.5-1.5); Est. Creatinine Clearance* 55.91; Estimated Glomerular Filt Rate 103 ml/min
[2025-03-04] MEDS: CEFAZOLIN 2 GM in 0.9 % SODIUM CHLORIDE Mini-bag 100 ML IVPB (07:00)
[2025-03-04 07:33] VITALS: BP 106/61; PULSE 58; RESP 16; TEMP 37.2; O2SAT 93
[2025-03-04] MEDS: TAMSULOSIN HCL 0.4 MG CAPSULE PO (09:04)
[2025-03-04] MEDS: SENNOSIDES 1 TAB TABLET 2 TAB PO (09:04)
[2025-03-04] MEDS: ASPIRIN 81 MG TABLET EC PO (09:04)
--- NOTE | 2025-03-04 09:51 | PM.ORPN ---
Subjective Subjective Date Seen: 03/04/25 Principal diagnosis: Status postop day 1 right total knee arthroplasty Interval history: Patient reports doing okay. Acute events overnight included urinary retention; this was relieved with straight catheterization. Since, he is able to void urine on his own volition without any abdominal discomfort, or distention. Pain managed with scheduled and PRN medications, ice. DVT prophylaxis: 81 mg aspirin by mouth twice daily, SCDs, walking. Denies fevers, chills, aches, N/V, CP, SOB/WALKER, or lightheadedness. Ortho Exam Narrative Exam Narrative: -Patient appears comfortable; no apparent acute distress -Alert and oriented times 3 -Operative knee moderately swollen; soft tissues supple; no ecchymosis; no erythematous streaking Warmth appropriate -Surgical dressing clean, dry, intact; no drainage -Bilateral calfs soft; no significant swelling, edema, tenderness, erythema, discoloration, warmth, or palpable cords -2+ DP/PT pulses, intact dermatomes and myotomes distally (5/5 strength) Const Vital Signs, click to edit/add: Vital Signs - 24 hr 03/03/25 11:20 03/03/25 11:25 03/03/25 11:30 Temperature 97.8 F 97.8 F Pulse Rate 64 64 62 Pulse Rate [Left Pulse Oximeter] Respiratory Rate 14 14 12 Blood Pressure 92/50 L 94/57 L 102/63 Blood Pressure [Right Arm] Pulse Oximetry 90 98 98 Oxygen Delivery Method OxyMask OxyMask OxyMask Oxygen Flow Rate 6 6 4 03/03/25 11:35 03/03/25 11:40 03/03/25 11:45 Temperature 97.0 F L Pulse Rate 60 62 59 L Pulse Rate [Left Pulse Oximeter] Respiratory Rate 12 14 16 Blood Pressure 111/64 106/59 L 116/69 Blood Pressure [Right Arm] Pulse Oximetry 95 94 95 Oxygen Delivery Method Room Air Room Air Room Air Oxygen Flow Rate 03/03/25 11:47 03/03/25 12:00 03/03/25 12:15 Temperature 96.0 F L 96.0 F L Pulse Rate 64 57 L 62 Pulse Rate [Left Pulse Oximeter] Respiratory Rate 14 14 14 Blood Pressure 101/62 120/68 118/74 Blood Pressure [Right Arm] Pulse Oximetry 95 95 95 Oxygen Delivery Method Room Air Room Air Oxygen Flow Rate 04/07/25 12:30 03/03/25 12:45 03/03/25 12:45 Temperature Pulse Rate 61 59 L 64 Pulse Rate [Left Pulse Oximeter] Respiratory Rate 14 16 16 Blood Pressure 113/67 107/67 107/62 Blood Pressure [Right Arm] Pulse Oximetry 95 96 96 Oxygen Delivery Method Room Air Room Air Room Air Oxygen Flow Rate 03/03/25 13:15 03/03/25 13:45 03/03/25 14:45 Temperature 96.6 F L 97.0 F L 97.2 F L Pulse Rate 64 59 L 62 Pulse Rate [Left Pulse Oximeter] Respiratory Rate 16 14 16 Blood Pressure 113/69 148/77 H 131/72 Blood Pressure [Right Arm] Pulse Oximetry 96 96 97 Oxygen Delivery Method Room Air Room Air Oxygen Flow Rate 03/03/25 15:00 03/03/25 15:45 03/03/25 16:45 Temperature 97.5 F L 97.9 F Pulse Rate 69 69 Pulse Rate [Left Pulse Oximeter] Respiratory Rate 16 14 16 Blood Pressure 123/74 104/64 Blood Pressure [Right Arm] Pulse Oximetry 95 96 96 Oxygen Delivery Method Room Air Room Air Room Air Oxygen Flow Rate 03/03/25 18:32 03/03/25 19:45 03/03/25 19:45 Temperature 97.8 F 98.1 F 98.1 F Pulse Rate 60 70 Pulse Rate [Left Pulse Oximeter] 70 Respiratory Rate 16 16 16 Blood Pressure 106/68 112/64 Blood Pressure [Right Arm] 112/64 Pulse Oximetry 95 97 97 Oxygen Delivery Method Room Air Room Air Oxygen Flow Rate 03/03/25 23:00 03/03/25 23:00 03/03/25 23:15 Temperature 98.5 F Pulse Rate Pulse Rate [Left Pulse Oximeter] 62 62 Respiratory Rate 18 18 18 Blood Pressure Blood Pressure [Right Arm] 113/62 Pulse Oximetry 95 95 Oxygen Delivery Method Room Air Room Air Oxygen Flow Rate 03/04/25 02:55 03/04/25 07:33 Temperature 98.3 F 98.9 F Pulse Rate Pulse Rate [Left Pulse Oximeter] 69 58 L Respiratory Rate 16 16 Blood Pressure Blood Pressure [Right Arm] 120/62 106/61 Pulse Oximetry 95 93 Oxygen Delivery Method Room Air Room Air Oxygen Flow Rate Assessment and Plan Assessment and plan (1) Osteoarthritis of right knee: Problem details: Severe Status: Acute (2) History of total right knee replacement: Problem details: Right total knee arthroplasty - subvastus. Dr. Henderson, 03/03/25. Anticipate routine postoperative pain management and therapy and discharge to home tomorrow. Status: Acute (3) Urinary retention: Problem details: Postop right knee arthroplasty on 03/03/2025 he had low abdominal pain with 1000 mL of retained urine. Will straight cath 1 more time if needed after that place [place] if still unable to void. Initiate tamsulosin therapy. Discussed with patient ongoing evaluation management of this problem including possible explanations/diagnosis and potential treatments. Status: Acute (4) Observed sleep apnea: Problem details: Monitor tonight since patient is here off CPAP Status: Acute Plan - Complete 23 hour perioperative antibiotics. - PT/OT consult for education and assistance. - Social work consult for discharge planning - Prescribed analgesics as needed - DVT prophylaxis: 81 mg aspirin by mouth twice daily, walking, and SCDs - Anticipation is for discharge to home with family today 03/04/2025 if the patient remains medically stable, pain is controlled, and they are safe with mobilization.
[2025-03-04] MEDS: ONDANSETRON ODT 4 MG TAB PO (11:19)
--- NOTE | 2025-03-04 11:40 | PC.SOCIAL ---
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 Social work can try to follow-up with pt via phone on .
--- NOTE | 2025-03-04 13:22 | PC.NURSE ---
Discharge: Patient pleasant and cooperative. Patient vitally stable, lungs clear, BS WNL, IV removed, catheter intact. Patient rates right knee pain 8/10, 10 mg of oxy given twice. Patient reported zophran after discharge information was reviewed. Charge nurse administered zophran. Patient signed belongings sheet and discharge form, patient and family's questions answered. Patient left the floor to home by wheelchair with family [phone].
--- NOTE | 2025-03-04 13:45 | P.DS_ITS ---
DS: Providers Provider Date Seen: 03/04/25 Primary care physician: Luis Carlos Mcqueen MD Attending Physician on discharge: Magno Henderson MD Date of Discharge: 03/04/25 DS: Diagnosis Discharge Diagnosis (1) History of total right knee replacement: Status: Acute Problem details: Right total knee arthroplasty - subvastus. Dr. Henderson, 03/03/25. Anticipate routine postoperative pain management and therapy and discharge to home tomorrow. (2) Urinary retention: Status: Acute Problem details: Postop right knee arthroplasty on 03/03/2025 he had low abdominal pain with 1000 mL of retained urine. After initial straight cath did not need any further intervention for urinary retention. Bladder scan up to 247 mL on 1 occasion. No urinary symptoms. DS: Summary Hospital Course Hospital Course: Yvan Blood is a 70 year old male with hyperlipidemia, osteoarthritis of the knees, SINAN admitted to the hospital for right total knee arthroplasty. Procedures performed by Dr. Henderson today. No operative complications. He is requesting consult for medical management perioperatively. Patient reported having significant low abdominal pain after coming out of anesthesia to the [facility] floor. He was unable to void. Bladder scan showed a large amount of retained urine. Straight cath was performed for about a 1000 mL of urine. This relieved his low abdominal pain. Patient is does not have a history of urinary retention, bladder problems, prostate problems, bowel problems. He reports he does void every 2-3 hours at night. Otherwise denies any other urinary symptoms. He reports no other concerns. Knee pain is adequately controlled. He is not having any nausea. Preop evaluation did not identify any significant concerns for the perioperative. He does have sleep apnea but chose not to bring his CPAP to the hospital. Overnight he did fairly well. He did well with therapy. Pain is adequately controlled. He is able to void without difficulty. No urinary symptoms. After initial straight cath he had no further significant urinary retention. He had 1 bladder scan up to 247 mL. Be discharged with the addition of tamsulosin and follow-up outpatient for further evaluation of urinary retention. Status at Discharge Functional status at discharge: uses cane/walker Overall status at discharge: patient is progressing back to baseline Time Spent with Patient Time attestation: Total time spent providing and/or coordinating discharge services: Exam Narrative: Exam Narrative: He is alert and appears in no distress. Breathing is normal. Right lower extremity with mild postoperative swelling. No distal edema a a good pulses and sensation. Const: Vital Signs, click to edit/add: Vital Signs - 24 hr 03/03/25 14:45 03/03/25 15:00 03/03/25 15:45 Temperature 97.2 F L 97.5 F L Pulse Rate 62 69 Pulse Rate [Left P ulse Oximeter] Respiratory Rate 16 16 14 Blood Pressure 131/72 123/74 Blood Pressure [Ri ght Arm] Pulse Oximetry 97 95 96 Oxygen Delivery Me thod Room Air Room Air Room Air 03/03/25 16:45 03/03/25 18:32 03/03/25 19:45 Temperature 97.9 F 97.8 F 98.1 F Pulse Rate 69 60 Pulse Rate [Left P ulse Oximeter] 70 Respiratory Rate 16 16 16 Blood Pressure 104/64 106/68 Blood Pressure [Ri ght Arm] 112/64 Pulse Oximetry 96 95 97 Oxygen Delivery Me thod Room Air Room Air 03/03/25 19:45 03/03/25 23:00 03/03/25 23:00 Temperature 98.1 F Pulse Rate 70 Pulse Rate [Left P ulse Oximeter] 62 Respiratory Rate 16 18 18 Blood Pressure 112/64 Blood Pressure [Ri ght Arm] Pulse Oximetry 97 95 Oxygen Delivery Me thod Room Air Room Air 03/03/25 23:15 03/04/25 02:55 03/04/25 07:33 Temperature 98.5 F 98.3 F 98.9 F Pulse Rate Pulse Rate [Left P ulse Oximeter] 62 69 58 L Respiratory Rate 18 16 16 Blood Pressure Blood Pressure [Ri ght Arm] 113/62 120/62 106/61 Pulse Oximetry 95 95 93 Oxygen Delivery Me thod Room Air Room Air Room Air 03/04/25 07:33 03/04/25 07:33 Temperature Pulse Rate Pulse Rate [Left P ulse Oximeter] 58 L Respiratory Rate 16 16 Blood Pressure Blood Pressure [Ri ght Arm] Pulse Oximetry 93 Oxygen Delivery Me thod Room Air Documenting provider has reviewed patient's vital signs: yes DS: Data Data Completed and Pending Labs on day of discharge: Labs from last 24 hours 03/04/25 06:21 WBC 13.89 H RBC 3.92 L Hgb 12.3 L Hct 36.4 L MCV 93 MCH 31 MCHC 34 RDW Coeff of Martín 12.6 Plt Count 200 Neut % (Auto) 79.1 H Lymph % (Auto) 11.7 L [place] % (Auto) 8.9 Eos % (Auto) 0.1 Baso % (Auto) 0.1 Neut # (Auto) 11.00 H Lymph # (Auto) 1.60 [place] # (Auto) 1.20 H Eos # (Auto) 0.00 Baso # (Auto) 0.00 Abs Immat Gran (auto) 0.00 Imm/Tot Granulo (auto) 0.1 Sodium 134 L Potassium 4.0 BUN 14 Creatinine 0.6 Estimated Creat Clear 55.91 Estimated GFR 103 Discharge Plan Discharge Disposition: Home w/ Parent or Adult Discharging Surgeon: Magno Henderson Follow-Up Appointment: 1 week postop with JESS Prescriptions: New rosuvastatin 20 mg tablet 20 mg PO DAILY Qty: 90 0RF tamsulosin [Flomax] 0.4 mg capsule 0.4 mg PO DAILY Qty: 90 0RF sennosides-docusate sodium [Senna-S] 8.6-50 mg tablet 1 - 4 tab-cap PO BID PRN (Reason: constipation) Qty: 60 0RF Rx Instructions: Hold medication if experiencing loose stools. aspirin 81 mg tablet,delayed release (DR/EC) 81 mg PO BID Qty: 60 0RF Rx Instructions: Medication to help prevent blood clots postoperatively; take TWICE daily. acetaminophen 500 mg capsule 500 - 1,000 mg PO Q6H MDD 4000mg PRNQty: 100 0RF oxycodone 5 mg tablet 2.5 - 5 mg PO Q4-6H MDD 6 PRN (Reason: pain) Qty: 42 0RF Rx Instructions: Take as needed for postop pain: 2.5mg mild pain, 5mg moderate-severe pain; wean as tolerated. No Action rosuvastatin 10 mg tablet 10 mg PO DAILY Activity Level: Activity as Tolerated, Weight Bearing as Tolerated, Use Cane and Use Walker Activity Detail: Wound: ? Remove surgical dressing postop day 5. Remove dressing sooner if integrity is in question. ? No immersing wound in water; showering okay; light scrub with your hand and body soap, rinse, dab dry ? Sutures are under the skin, will dissolve; do not scrub the wound or apply ointments/lotions ? Call our office with any redness that streaks, excessive drainage from the wound, or wound gapping. Ice/Elevate: ? Ice as needed for swelling and discomfort; elevate extremity frequently above the heart. Motion/Exercise: ? Weight bear as tolerated operative extremity (walker/cane for ambulation assistance as needed) ? Per PT/OT. ? Straight leg raises daily: 1-2 sets of 10 reps Pain Medications: ? Oral narcotic as prescribed. Wean as tolerated. Blood Clot Prevention (DVT): ? Medication: 81 mg aspirin by mouth twice daily (1 month) Driving: ? Do not drive while taking narcotic pain medication ? Anticipate 4-6 weeks no driving if operative leg is driving leg Dental: ? No elective dental work for 3 months post-op. If there is an urgent/emergent dental need, contact our office for an antibiotic prescription. Smoking/Alcohol: ? Do not smoke; do no drink alcohol especially when taking postoperative oral narcotic medication Seek Care from you Primary Care Provider if you experience the following issues in the postoperative phase and beyond: ? Bacterial infections such as: pneumonia, bacterial skin infection (cellulitis), UTI, high fever, chills unrelated to the operative body part - call your primary care physician urgently for treatment in hopes to protect your health and the metal implant. Referrals: ? PT, OT per patient preference - evaluate & treat total knee arthroplasty protocol (gait training, ROM, ADLs) Vaccines: ? No vaccines until 4-6 weeks postop Follow up: ? RAINE-C visit in 1 week ? Ortho surgeon follow-up in 6 weeks; repeat radiographs three views operative knee If there are any acute concerns regarding your surgery, please call our orthopedic clinic ([phone]) Discharge Diet: Regular Patient Instructions: Acetaminophen (By mouth), Aspirin (By mouth), Oxycodone, Rapid Release (By mouth), Tamsulosin (By mouth), Rosuvastatin (By mouth), Senna (By mouth), Total Knee Replacement (DC) Follow-up: Luis Carlos Mcqueen MD [Primary Care Provider] - 03/21/25 8:45 am ( ) Anjel Childers PA-C [Physician Termite Helper] - 03/11/25 1:20 pm ([facility]) Discharge Orders: Discharge Order (Routine); Ordered 03/04/25 Ordered By: Magno Henderson
== END 2025-03-04 11:45 | disposition home or self-care (01) ==
LOC: OR 07:28 → MEDSURG 07:29
PROVIDERS: PCP Family Medicine; Visit Provider Orthopaedic Surgery Sports Medicine
PROC: (CPT 27447; principal; 2025-03-03 09:30)
DX: M17.11 Unilateral primary osteoarthritis, right knee (principal); G89.18 Other acute postprocedural pain; G47.33 Obstructive sleep apnea (adult) (pediatric); R33.8 Other retention of urine; R10.30 Lower abdominal pain, unspecified; E78.5 Hyperlipidemia, unspecified
CPT/HCPCS: 27447; 01402; 36415; 51702; 51798; 64447; 64454; 73560; 76942; 82565; 84132; 84295; 84520; 85025; 97110; 97116; 97161; 97165; 97530; 97535; 99100; A9270; C1776; J0665; J0690; J1100; J1171; J2250; J2405; J2704; J3010; J7120

== ENCOUNTER 2025-04-17 12:00 | Outpatient (RCR) | payer MEDICARE, BC, SELFPAY ==
--- NOTE | 2025-02-25 15:27 | PT.OPEX ---
PT [place] Outpatient Eval PT [facility] Outpatient Eval Start: 01/21/25 12:56 Freq: Status: Active Protocol: Document 02/25/25 09:13 MLS (Rec: 02/25/25 15:25 MLS [email or web address]) E-signed By Zahida Park DPT Physical Therapy Outpatient Evaluation Insurance Information Recert Due Date 05/25/25 Insurance Name Medicare B,Blue Cross/Blue Shield Medical Diagnosis M17.11 Unilateral primary OA, right knee Z96.651 presence of right artificial knee joint Right TKA 03/03/25 Treating Diagnosis R TKA protocol Referring MD Dr. Shay Subjective Preferred Name Eduard Gutierrez Patient is a 70 year old male who presents to physical therapy prior to right TKA on 03/03/25. He is staying over for one night in the hospital. Significant past medical history includes arthritis. Pain Comments Today: 8/10 on a 0-10 pain scale with 10 = extreme pain Current Work Status [employer] Occupation [employer], [employer] Objective Other/Pertinent Objective GAIT/FUNCTIONAL MOBILITY Antalgic gait, no assistive device KNEE ROM Left: WNL Right: Extension/Flexion: -5-110 HIP ROM Grossly tested WNL LLE MMT: Hip flexion: R 4+/5 L 4+/5 Hip abduction: R 4+/5 L 4+/5 Hip extension: R 4+/5 L 4+/5 Knee flexion: R 4+/5 L 4+/5 Knee extension: R 5/5 L 5/5 Reviewed/demonstrated on frequency to perform HEP post operatively including: long sitting quad ankle pumps supine heel slide with strap supine quad sets supine SAQ SLR with quad set seated long arc quad seated knee flexion AAROM supine knee extension stretch on towel roll Extensive discussion and education on what to expect post operatively. Time was spent discussing home modifications, Assistive devices, pain control, fall prevention, hospital stay time line, and assist needed for activities post surgically. Pt questions were answered and demonstrated understanding. Assessment Assessment/Impression Pt is a 70 year old male who presents prior to right TKA on 03/03/25. Patient also has notable objective findings including limited ROM, tenderness to palpation, and decreased strength which are also likely contributing to the problem. Patient is a good candidate for skilled therapy to target deficits described above. Skilled PT intervention is necessary for use of therapeutic exercise manual therapy, neuromuscular re- education, gait training, and therapeutic activity. Functional impairments include difficulty with: standing, walking, exercising, sleeping and ADLs. See appropriate sections of PT eval for complete list of goals and POC . D/C plan and criteria is for pt to achieve the goals as listed below or until max rehab potential is met. Pt was agreeable with plan of care and goals established. Primary Functional Limitations standing walking exercising sleeping ADLS Plan of Care Rehabilitation Potential Good Physical Therapy Goals Within 10-12 weeks: 1) Pt will improve knee AROM at least 0 to 120 for improved sit to stand transfers 2) Pt will demonstrate negative extensor lag during straight leg raise exercise with ability to complete at least 15 reps with 5 sec hold to improve strength for ambulation 3) Patient will demonstrate/ report ability to walk for 15 minutes w/SPC with pain level <1/10, to allow for community and household ambulation. 4) Pt will be indep with HEP for associate professor of biology management of pain/symptoms 5) Patient will ascend/descend at least 10 steps using single rail and reciprocal pattern to improve ease of mobility at home/community 7) Patient will demonstrate/ report ability to walk for 15 minutes w/o AD with pain level <1/10, to allow for community and household ambulation. Coordination/Communication With Referral Source Treatment Plan/Direct Interventions Gait Training,Manual Therapy, Neuromuscular Re-ed, Therapeutic Activities, Therapeutic Exercises Patient Will Be Discharged From Therapy Independently Progressing Evaluation Billing Untimed Code Treatment Minutes 30 Complexity Low Certification Information Provider Signature Required Yes Provider Signature Shows Agreement With POC & Medical Necessity Physician NPI Number Write NPI# Here Physician Comment/Change : Physician Signature & Date Requested Please Sign/Date Here
== END 2025-05-28 12:15 | disposition home or self-care (01) ==
PROVIDERS: PCP Family Medicine; Visit Provider Orthopaedic Surgery Sports Medicine
DX: Z47.1 Aftercare following joint replacement surgery (principal); M17.11 Unilateral primary osteoarthritis, right knee; Z96.651 Presence of right artificial knee joint; Z51.89 Encounter for other specified aftercare
CPT/HCPCS: 97110; 97140; 97161

== ENCOUNTER 2025-07-30 10:15 | Outpatient (RCR) | payer MEDICARE, BC, SELFPAY ==
--- NOTE | 2025-06-12 09:37 | PT.OPEX ---
PT [place] Outpatient Eval PT [facility] Outpatient Eval Start: 06/09/25 12:33 Freq: Status: Active Protocol: Document 06/12/25 07:05 MLS (Rec: 06/12/25 09:35 MLS [email or web address]) E-signed By Zahida Park DPT Physical Therapy Outpatient Evaluation Insurance Information Recert Due Date 09/09/25 Insurance Name Medicare B,[employer] Medical Diagnosis Z96.651 presence of right artificial knee joint M25.661 stiffness of right knee, not elsewhere classified Treating Diagnosis R knee stretching R TKA 03/03/[address] Shay Subjective Preferred Name Eduard Gutierrez Patient is a 70 year old male who presents to physical therapy with signs and symptoms consistent with right knee stiffness s/p TKA 03/03/25. He states that had a cortisone shot in his left knee and is sore. He states that his right knee is stiff. He states that he is doing his exercises twice a day. He is biking twice a day for 15 minutes. He reports that he is fishing, gardening and doing a lt of work for friends and family . He reports that his knee stiffens up and feels tight . Significant past medical history includes R TKA and arthritis. Patient would like to achieve less stiffness and more mobility through physical therapy sessions. Pain Comments Today: 2/10 on a 0-10 pain scale with 10 = extreme pain Current Work Status Retired Precautions Weight Bearing Full Weight Bearing Status Therapy Limitations/ Not Limited Systems Review Objective Other/Pertinent GAIT/FUNCTIONAL MOBILITY Objective Single leg stance: no pain Squat: no pain KNEE ROM Extension/Flexion: R 0-105, 120 with OP, L 0-110 HIP ROM Grossly tested WFL LLE MMT: Hip flexion: R 5/5 L 5/5 Hip abduction: R 4+/5 L 4+/5 Hip extension: R 5/5 L 5/5 Knee flexion: R 5/5 L 5/5 Knee extension: R 5/5 L 5/5 JOINT MOBILITY/PALPATION Tenderness and tightness with palpation of right hamstring TX: Functional Test 62/80 Performed & Score A score increase of 6 points shows a significant improvement in lower extremity function. Assessment Assessment/ Pt is a 70 year old male who presents with concerns of Impression right knee stiffness. Patient also has notable objective findings including limited ROM, tenderness to palpation, and decreased strength which are also likely contributing to the problem. Patient is a good candidate for skilled therapy to target deficits described above. Skilled PT intervention is necessary for use of therapeutic exercise manual therapy, neuromuscular re-education, gait training, and therapeutic activity. Functional impairments include difficulty with: sitting, squatting, exercising and ADLS. See appropriate sections of PT eval for complete list of goals and POC. D/C plan and criteria is for pt to achieve the goals as listed below or until max rehab potential is met. Pt was agreeable with plan of care and goals established. Primary Functional sitting Limitations squatting exercisng ADLS Plan of Care Rehabilitation Good Potential Physical Therapy Within 10-12 weeks: Goals 1) Pt will improve knee AROM at least 0 to 120 for improved sit to stand transfers 2) Pt will be able to sit in a car for 30 minutes without pain. 3) Patient will be able to squat and picker and sorter load and unload something from the ground with put pain. 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 Coordination/ Referral Source Communication With Treatment Plan/ Gait Training,Joint Mobilization,Manual Therapy, Direct Interventions Neuromuscular Re-ed,Therapeutic Activities,Therapeutic Exercises Patient Will Be Independently Progressing Discharged From Therapy Evaluation Billing Untimed Code 35 Treatment Minutes Complexity Low Certification Information Provider Signature Yes Required Provider Signature POC & Medical Necessity Shows Agreement With Physician NPI Number Write NPI# Here Physician Comment/ : Change Physician Signature Please Sign/Date Here & Date Requested
== END 2025-09-29 16:37 | disposition home or self-care (01) ==
PROVIDERS: PCP Family Medicine; Visit Provider Orthopaedic Surgery Sports Medicine
DX: Z47.1 Aftercare following joint replacement surgery (principal); M25.661 Stiffness of right knee, not elsewhere classified; Z96.651 Presence of right artificial knee joint; Z51.89 Encounter for other specified aftercare
CPT/HCPCS: 97110; 97161

== ENCOUNTER 2025-10-07 09:01 | Outpatient (CLI) | payer MEDICARE, BC, SELFPAY | END 2025-10-07 09:02 | disposition home or self-care (01) | LOC: NFLDREF 10-10 08:53 | PROVIDERS: PCP Family Medicine; Referring Provider Family Medicine; Visit Provider Family Medicine | DX: Z13.1 Encounter for screening for diabetes mellitus (principal); R53.83 Other fatigue; M25.562 Pain in left knee | CPT/HCPCS: 82728; 82947; 83090 ==